=== PATIENT | female | born 1965 | race Caucasian/White ===

== ENCOUNTER 2019-03-27 02:35 | Inpatient (IN) | payer MEDICARE, OTHER ==
[2019-03-27] MEDS ORDERED: Sodium Chloride 0.9% 20 ML ONE (07:13)
[2019-03-27] MEDS ORDERED: Propofol 200 MG/20 ML SDV ONE (07:13)
[2019-03-27] MEDS ORDERED: Phenylephrine/Normal Saline 100 MCG/ML 10 ML Syringe ONE (07:13)
[2019-03-27] MEDS ORDERED: ePHEDrine 50 MG/ML SDV ONE (07:13)
[2019-03-27] MEDS ORDERED: Midazolam 1 MG/ML 2 ML SDV ONE (07:14)
[2019-03-27] MEDS ORDERED: fentaNYL 100 MCG/2 ML SDV ONE (07:14)
[2019-03-27] MEDS ORDERED: Bupivacaine 0.75%/D5W 2 ML Amp ONE (07:22)
[2019-03-27] MEDS ORDERED: Albuterol 0.083% 2.5 MG/3 ML Neb Soln NEB PRN (07:34)
[2019-03-27] MEDS ORDERED: 50% Dextrose in Water 50 ML Syringe IVPUSH PRN (07:34)
[2019-03-27] MEDS ORDERED: Naloxone 0.4 MG/ML Syringe IVPUSH PRN (07:34)
[2019-03-27] MEDS ORDERED: EPINEPHrine 1:10,000 1 MG/10 ML Syringe IVPUSH PRN (07:34)
[2019-03-27] MEDS ORDERED: Atropine 0.1 MG/ML 10 ML Syringe IVPUSH PRN ×2 (07:34)
[2019-03-27] MEDS ORDERED: ceFAZolin/Dextrose,Iso-Osmotic 2 GM/50 ML Duplex Bag IV ONE (07:41)
[2019-03-27] MEDS: Lactated Ringers 1,000 ML IV SCH ×2 (09:06→23:52)
--- NOTE | 2019-03-27 09:18 | PCM.PREANE ---
Preanesthetic Assessment - Anesthesia/Transfusion/Family Hx Anesthesia History: Prior Anesthesia Without Reaction Family History of Anesthesia Reaction: No Transfusion History: No Prior Transfusion(s) Intubation History: Unknown - Review of Systems General: No Symptoms Pulmonary: No Symptoms Cardiovascular: No Symptoms Gastrointestinal: No Symptoms Neurological: No Symptoms Other: Reports: None - Physical Assessment NPO Status Date: 03/26/18 NPO Status Time: 20:30 Vital Signs: Last Vital Signs Temp 36.3 C 03/27/19 08:32 Pulse 99 03/27/19 08:32 Resp 16 03/27/19 08:32 BP 124/81 03/27/19 08:32 Pulse Ox 97 03/27/19 08:32 Height: 5 ft 6 in Weight: 113.852 kg ASA Class: 2 Mental Status: Alert & Oriented x3 Airway Class: Mallampati = 2 Dentition: Reports: Normal Dentition (bonded front upper tooth ) Thyro-Mental Finger Breadths: 3 Mouth Opening Finger Breadths: 3 ROM/Head Extension: Full Lungs: Clear to Auscultation, Normal Respiratory Effort Cardiovascular: Regular Rate, Regular Rhythm - Allergies Allergies/Adverse Reactions: Allergies Allergy/AdvReac Type Severity Reaction Status Date / Time gabapentin Allergy Other Verified 03/22/19 12:24 morphine Allergy Headache Verified 03/22/19 12:24 - Blood Blood Available: No - Anesthesia Plan Pre-Op Medication Ordered: None - Acknowledgements Anesthesia Type Planned: Spinal (general anesthesia back-up) Pt an Appropriate Candidate for the Planned Anesthesia: Yes Alternatives and Risks of Anesthesia Discussed w Pt/Guardian: Yes Pt/Guardian Understands and Agrees with Anesthesia Plan: Yes PreAnesthesia Questionnaire HEENT History: Reports: Glaucoma Cardiovascular History: Reports: None, Other (See Below) (h/o hyperlipidemia) Respiratory History: Reports: Sleep Apnea Other Respiratory History: uses CPAP nightly Gastrointestinal History: Reports: GERD Other Gastrointestinal History: no medication for GERD 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 History: Reports: Renal 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: Musculoskeletal History: Reports: Arthritis (psoriatic), Back Pain, Chronic, Fibromyalgia, Neck Pain, Chronic Other Musculoskeletal History: cervical spinal stenosis, lumbar degenerative disc disease Neurological History: Reports: None, Migraines, Vertigo Other Neuro History: Migraines from Cervical Stenosis, has lumbar degenerative disc disease, hx of restless leg syndrome, some Doctors thought she had MS but it has not been confirmed, hx of motion sickness and vertigo Psychiatric History: Reports: Anxiety, Depression, PTSD Endocrine/Metabolic History: Reports: None (40.5), Obesity/BMI 30+ Other Endocrine/Metabolic History: took Metformin in the past for Type 2 diabetes- has been off of Metformin for over 1 year with low A1C Hematologic History: Reports: None Immunologic History: Reports: None Oncologic (Cancer) History: Reports: None - Past Surgical History Head Surgeries/Procedures: Reports: None Female Surgical History: Reports: Section, Hysterectomy, Lithotripsy /ESWL, Other (See Below) Other Female Surgeries/Procedures: pelvic Laparoscopy Musculoskeletal Surgical History: Reports: Ganglion Cyst, Shoulder Surgery Other Musculoskeletal Surgeries/Procedures:: left wrist, left shoulder clean out (crystals) Dermatological Surgical History: Reports: Other (See Below) - SUBSTANCE USE Smoking Status *Q: Former Smoker Tobacco Use Within Last Twelve Months: No Recreational Drug Use History: Yes Recreational Drug Type: Reports: Marijuana/Hashish - HOME MEDS Home Medications: Home Meds DULoxetine HCl [Cymbalta] 120 mg PO BEDTIME 07/10/15 [History] Folic Acid 2 mg PO BEDTIME 03/22/19 [History] Ketamine Hcl [Ketamine Nasal [place] Compound] 2 spray NASBOTH TID 03/22/19 [ History] Methotrexate [Xatmep] 0.8 ml SQ WEEKLY 03/22/19 [History] Naltrexone 6 mg PO BEDTIME 03/22/19 [History] Nortriptyline HCl [Pamelor] 50 mg PO TID 03/22/19 [History] Ondansetron [Zofran ODT] 4 mg PO ASDIRECTED PRN 03/22/19 [History] Vitamin B Complex 1 cap PO BEDTIME 03/22/19 [History] Vortioxetine Hydrobromide [Trintellix] 10 mg PO BEDTIME 03/22/19 [History] hydrOXYzine HCL [hydrOXYzine] 75 mg PO BEDTIME 03/22/19 [History] tiZANidine [Zanaflex] 8 mg PO Q8H PRN 03/22/19 [History] - CURRENT (IN HOUSE) MEDS Current Meds: Current Medications Albuterol (Proventil Neb Soln) 2.5 mg NEB ONETIME PRN PRN Reason: Wheezing Atropine Sulfate (Atropine 0.1 Mg/Ml) 0.5 mg IVPUSH ASDIRECTED PRN PRN Reason: Hypo-perfusion Stop: 03/27/19 19:34 Atropine Sulfate (Atropine 0.1 Mg/Ml) 1 mg IVPUSH ASDIRECTED PRN PRN Reason: Hypo-Perfusion Dextrose/Water (Dextrose 50% In Water) 50 ml IVPUSH ASDIRECTED PRN PRN Reason: Hypoglycemia Epinephrine HCl (Epinephrine 1:10,000) 1 mg IVPUSH ASDIRECTED PRN PRN Reason: ACLS Guidelines Fentanyl (Sublimaze) 50 mcg IVPUSH Q5M PRN PRN Reason: Pain Lactated Ringer's (Ringers, Lactated) 1,000 mls @ 100 mls/hr IV ASDIRECTED HILARIA Last Admin: 03/27/19 09:06 Dose: 100 mls/hr Cefazolin Sodium/Dextrose 2 gm (/ Premix) 50 mls @ 100 mls/hr IV ONETIME HILARIA Naloxone HCl (Narcan) 0.1 mg IVPUSH ASDIRECTED PRN PRN Reason: Respiratory Depression Tranexamic Acid (Cyklokapron) 2,000 mg IV ONETIME ONE Stop: 03/27/19 09:31 Discontinued Medications Bupivacaine HCl/Dextrose (Marcaine 0.75% Spinal) Confirm Administered Dose 2 ml .ROUTE .STK-MED ONE Stop: 03/27/19 07:23 Cefazolin Sodium/Dextrose (Ancef) Confirm Administered Dose 2 gm IV .STK-MED ONE Stop: 03/27/19 07:42 Ephedrine Sulfate (Ephedrine Sulfate) Confirm Administered Dose 50 mg .ROUTE .STK-MED ONE Stop: 03/27/19 07:14 Fentanyl (Sublimaze) Confirm Administered Dose 100 mcg .ROUTE .STK-MED ONE Stop: 03/27/19 07:15 Sodium Chloride (Normal Saline) Confirm Administered Dose 20 mls @ as directed .ROUTE .STK-MED ONE Stop: 03/27/19 07:14 Lidocaine HCl (Xylocaine-Mpf 1%) Confirm Administered Dose 5 ml .ROUTE .STK-MED ONE Stop: 03/27/19 07:20 Midazolam HCl (Versed 1 Mg/Ml) Confirm Administered Dose 2 mg .ROUTE .STK-MED ONE Stop: 03/27/19 07:15 Phenylephrine HCl (Phenylephrine In Ns 100 Mcg/Ml) Confirm Administered Dose 1 mg .ROUTE .STK-MED ONE Stop: 03/27/19 07:14 Propofol (Diprivan 20 Ml) Confirm Administered Dose 200 mg .ROUTE .STK-MED ONE Stop: 03/27/19 07:14
[2019-03-27] MEDS ORDERED: ceFAZolin 2 GM in Premix Bag 1 BAG IV SCH (09:30)
[2019-03-27] MEDS ORDERED: Dermabond Prineo 1 Tube TOP ONE (09:50)
[2019-03-27] MEDS ORDERED: Famotidine 20 MG/2 ML SDV IVPUSH ONE (10:05)
[2019-03-27] MEDS ORDERED: Famotidine 20 MG/2 ML SDV ONE (10:08)
[2019-03-27] MEDS ORDERED: Rocuronium 100 MG/10 ML Syringe ONE (10:55)
[2019-03-27] MEDS ORDERED: Ondansetron 4 MG/2 ML SDV ONE (10:55)
[2019-03-27] MEDS ORDERED: Lidocaine 2% 5 ML SDV ONE (10:55)
[2019-03-27] MEDS ORDERED: fentaNYL 250 MCG/5 ML SDV ONE (10:57)
[2019-03-27] MEDS ORDERED: Scopolamine 1.5 MG Transdermal Patch ONE (11:04)
[2019-03-27] MEDS ORDERED: Acetaminophen 650 MG in Premix Bag 1 BAG IV ONE (12:04)
--- NOTE | 2019-03-27 12:12 | PCM.OPNOTE ---
- General Post-Op/Procedure Note Date of Surgery/Procedure: 03/27/19 Operative Procedure(s): left anterior total hip arthroplasty Findings: labral ossification, OA Pre Op Diagnosis: left hip osteoarthritis Post-Op Diagnosis: same Anesthesia Technique: General ET Tube Primary Surgeon: Federico Friedman Mai Ditch Tender: Juana Drew Pathology: femoral head EBL in mLs: 500 Complications: none Condition: Good
[2019-03-27] MEDS ORDERED: Sodium Chloride 0.9% 10 ML Syringe FLUSH PRN (12:25)
[2019-03-27] MEDS ORDERED: Ondansetron 4 MG/2 ML SDV IVPUSH PRN (12:25)
[2019-03-27] MEDS ORDERED: diphenhydrAMINE 25 MG Cap PO PRN (12:25)
[2019-03-27] MEDS ORDERED: Sodium Chloride 0.9% 2.5 ML Syringe FLUSH PRN (12:25)
[2019-03-27] MEDS ORDERED: Acetaminophen/HYDROcodone 325-7.5 MG Tab PO PRN (12:25)
[2019-03-27] MEDS ORDERED: Aluminum Hydroxide/Magnesium Hydroxide/Simethicone Susp 30 ML Cup PO PRN (12:25)
[2019-03-27] MEDS ORDERED: Docusate Sodium 100 MG Cap PO PRN (12:25)
[2019-03-27] MEDS ORDERED: Bisacodyl 10 MG Supp RECTAL PRN (12:25)
[2019-03-27] MEDS: fentaNYL 100 MCG/2 ML SDV IVPUSH PRN ×3 (12:29→13:47)
[2019-03-27] MEDS: HYDROmorphone 2 MG/ML Syringe IVPUSH PRN ×2 (12:31→13:25)
[2019-03-27] MEDS ORDERED: Ondansetron 4 MG Tab.DIS PO PRN (12:33)
[2019-03-27] MEDS ORDERED: Acetaminophen 1,000 MG in Premix Bag 1 BAG IV ONE (12:59)
[2019-03-27] MEDS: Ketorolac 30 MG/ML SDV IVPUSH SCH ×3 (13:29→23:59)
[2019-03-27] MEDS ORDERED: LORazepam 2 MG/ML SDV IVPUSH ONE ×3 (13:49→14:45)
--- NOTE | 2019-03-27 14:06 | PCM.POSTAN ---
POST ANESTHESIA ASSESSMENT - MENTAL STATUS Mental Status: Alert, Oriented - VITAL SIGNS Vital Signs: Last Vital Signs Temp 35.9 C 03/27/19 12:25 Pulse 121 H 03/27/19 13:50 Resp 13 03/27/19 13:50 BP 108/69 03/27/19 13:50 Pulse Ox 93 L 03/27/19 13:50 - RESPIRATORY Respiratory Status: Respiratory Rate WNL, Airway Patent, O2 Saturation Stable - CARDIOVASCULAR CV Status: Pulse Rate WNL, Blood Pressure Stable - GASTROINTESTINAL GI Status: No Symptoms - PAIN Pain Score: 8 - POST OP HYDRATION Hydration Status: Adequate & Stable - OBSERVATIONS Free Text/Narrative:: no anesthesia problems
--- NOTE | 2019-03-27 16:49 | PCM.CONS ---
H&P History of Present Illness - General Date of Service: 03/27/19 Admit Problem/Dx: Admission Diagnosis/Problem Admission Diagnosis/Problem Hip replacement planned Source of Information: Patient History Limitations: Reports: No Limitations - History of Present Illness Initial Comments - Free Text/Narative: This 53 year female with pmh of anxiety depression chronic pain from MS and fibromyalgia with pain contract with Dr Kong presented today for L anterior JANI with Dr Santos. Hospitalist service consulted for medical management post- operatively. Patient returned from PACU this afternoon and ultimately transferred to ICU due to uncontrolled pain and concern with heavy use of narcotics in conjunction with her FAHEEM. Currently patient is alert, very drowsy from medications, rating pain 7/10 which is improved per patient family. Protecting her airway per self with sats of 93% on 2 L NC. Naltrexone was weaned by PCP, she last took this on Tuesday evening and took 3 mg. FAHEEM at home, uses at home CPAP. No hx of DM, CAD or HTN. - Related Data Allergies/Adverse Reactions: Allergies Allergy/AdvReac Type Severity Reaction Status Date / Time gabapentin Allergy Other Verified 03/27/19 16:04 morphine Allergy Headache Verified 03/27/19 16:04 Home Medications: Home Meds DULoxetine HCl [Cymbalta] 120 mg PO BEDTIME 07/10/15 [History] Folic Acid 2 mg PO BEDTIME 03/22/19 [History] Ketamine Hcl [Ketamine Nasal [place] Compound] 2 spray NASBOTH TID 03/22/19 [ History] Methotrexate [Xatmep] 0.8 ml SQ WEEKLY 03/22/19 [History] Naltrexone 6 mg PO BEDTIME 03/22/19 [History] Nortriptyline HCl [Pamelor] 50 mg PO TID 03/22/19 [History] Ondansetron [Zofran ODT] 4 mg PO ASDIRECTED PRN 03/22/19 [History] Vitamin B Complex 1 cap PO BEDTIME 03/22/19 [History] Vortioxetine Hydrobromide [Trintellix] 10 mg PO BEDTIME 03/22/19 [History] hydrOXYzine HCL [hydrOXYzine] 75 mg PO BEDTIME 03/22/19 [History] tiZANidine [Zanaflex] 8 mg PO Q8H PRN 03/22/19 [History] Past Medical History HEENT History: Reports: Glaucoma Cardiovascular History: Reports: None, Other (See Below) (h/o hyperlipidemia) Respiratory History: Reports: Sleep Apnea Other Respiratory History: uses CPAP nightly Gastrointestinal History: Reports: GERD Other Gastrointestinal History: no medication for GERD 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 History: Reports: 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: Musculoskeletal History: Reports: Arthritis (psoriatic), Back Pain, Chronic, Fibromyalgia, Neck Pain, Chronic Other Musculoskeletal History: cervical spinal stenosis, lumbar degenerative disc disease Neurological History: Reports: None, Migraines, Vertigo Other Neuro History: Migraines from Cervical Stenosis, has lumbar degenerative disc disease, hx of restless leg syndrome, some Doctors thought she had MS but it has not been confirmed, hx of motion sickness and vertigo Psychiatric History: Reports: Anxiety, Depression, PTSD Endocrine/Metabolic History: Reports: None (40.5), Obesity/BMI 30+ Other Endocrine/Metabolic History: took Metformin in the past for Type 2 diabetes- has been off of Metformin for over 1 year with low A1C Hematologic History: Reports: None Immunologic History: Reports: None Oncologic (Cancer) History: Reports: None - Past Surgical History Head Surgeries/Procedures: Reports: None Female Surgical History: Reports: Section, Hysterectomy, Lithotripsy /ESWL, Other (See Below) Other Female Surgeries/Procedures: pelvic Laparoscopy Musculoskeletal Surgical History: Reports: Ganglion Cyst, Shoulder Surgery Other Musculoskeletal Surgeries/Procedures:: left wrist, left shoulder clean out (crystals) Dermatological Surgical History: Reports: Other (See Below) Social & Family History - Tobacco Use Smoking Status *Q: Former Smoker Years of Tobacco use: 37 Tobacco Use Comment: quit 2 years ago - Recreational Drug Use Recreational Drug Use: Yes Drug Use in Last 12 Months: Yes Recreational Drug Type: Reports: Marijuana/Hashish Other Recreational Drug Type: medical marijuana for pain Recreational Drug Use Frequency: Daily H&P Review of Systems - Review of Systems: Review Of Systems: See Below General: Reports: Other HEENT: Reports: No Symptoms Pulmonary: Reports: No Symptoms. Denies: Shortness of Breath Cardiovascular: Reports: No Symptoms. Denies: Chest Pain Gastrointestinal: Reports: No Symptoms. Denies: Abdominal Pain Musculoskeletal: Reports: Joint Pain (L hip pain) Skin: Reports: No Symptoms Psychiatric: Reports: No Symptoms Neurological: Reports: No Symptoms Hematologic/Lymphatic: Reports: No Symptoms Immunologic: Reports: No Symptoms Exam - Exam Exam: See Below - Vital Signs Vital Signs: Last Vital Signs Temp 96.2 F 03/27/19 16:00 Pulse 117 H 03/27/19 16:00 Resp 18 03/27/19 16:00 BP 114/70 03/27/19 16:00 Pulse Ox 92 L 03/27/19 16:00 Weight: 113.852 kg - Exam Quality Assessment: Supplemental Oxygen General: Alert, Sedated (very drowsy due to medications.) Lungs: Clear to Auscultation, Normal Respiratory Effort Cardiovascular: Regular Rate, Regular Rhythm Back Exam: Normal Inspection, Full Range of Motion Extremities: Normal Inspection, Normal Range of Motion, Non-Tender, No Pedal Edema Neuro Extensive - Mental Status: Alert Neuro Extensive - Motor, Sensory, Reflexes: CN II-XII Intact Psychiatric: Alert, Normal Affect, Normal Mood - Patient Data Lab Results Last 24 hrs: Laboratory Results - last 24 hr 03/27/19 Range/Units 09:00 Blood Type O NEGATIVE Antibody Screen NEGATIVE Sepsis Event Note - Focused Exam Vital Signs: Vital Signs Temp Pulse Resp BP Pulse Ox 03/27/19 16:00 96.2 F 117 H 18 114/70 92 L 03/27/19 13:50 121 H 13 108/69 93 L 03/27/19 13:45 120 H 14 113/75 93 L 03/27/19 13:40 120 H 12 112/80 93 L 03/27/19 13:35 116 H 18 117/70 94 L 03/27/19 13:30 116 H 12 129/82 95 03/27/19 13:25 120 H 14 124/82 94 L 03/27/19 13:20 121 H 13 142/80 H 93 L 03/27/19 13:15 122 H 14 133/85 93 L 03/27/19 13:10 123 H 15 117/77 93 L 03/27/19 13:05 119 H 15 117/67 94 L 03/27/19 13:00 120 H 14 137/97 H 97 03/27/19 12:55 122 H 15 151/103 H 97 03/27/19 12:50 118 H 16 113/83 97 03/27/19 12:45 115 H 15 122/93 H 97 03/27/19 12:41 114 H 32 H 142/94 H 96 03/27/19 12:35 113 H 25 H 163/104 H 97 03/27/19 12:30 111 H 17 147/87 H 97 03/27/19 12:25 96.6 F 110 H 14 122/96 H 87 L 03/27/19 08:32 97.3 F 99 16 124/81 97 Date Exam was Performed: 03/27/19 Time Exam was Performed: 16:49 Consult PN Assessment/Plan POD#: 0 Procedures: Procedures ASSAY THYROID STIM HORMONE (10/23/18) C-REACTIVE PROTEIN (05/16/17) CHEST X-RAY 2VW FRONTAL&LATL (01/14/15) COLONOSCOPY AND BIOPSY (07/15/15) COMPLETE CBC AUTOMATED (01/21/17) COMPLETE CBC W/AUTO DIFF WBC (10/23/18) COMPREHEN METABOLIC PANEL (10/23/18) ECHO EXAM OF ABDOMEN (07/07/15) EGD BIOPSY SINGLE/MULTIPLE (07/15/15) FIBRIN DEGRADATION QUANT (09/13/16) GLYCOSYLATED HEMOGLOBIN TEST (03/29/16) HELICOBACTER PYLORI ANTIBODY (06/12/15) HEPATOBIL SYST IMAGE W/DRUG (07/18/15) INFLUENZA ASSAY W/OPTIC (01/14/15) LIPID PANEL (03/29/16) METABOLIC PANEL TOTAL CA (09/13/16) MRI BRAIN STEM W/O & W/DYE (02/23/18) MRI CHEST SPINE W/O & W/DYE (02/23/18) MRI JNT OF LWR EXTRE W/O DYE (01/03/19) MRI JOINT UPR EXTREM W/O DYE (04/13/17) MRI LUMBAR SPINE W/O DYE (04/05/14) MRI NECK SPINE W/O & W/DYE (02/23/18) PT EVAL HIGH COMPLEX 45 MIN (08/02/17) PT EVALUATION (04/03/15) RBC SED RATE AUTOMATED (01/21/17) REMOVE WRIST TENDON LESION (02/19/15) ROUTINE VENIPUNCTURE (10/23/18) THERAPEUTIC EXERCISES (04/03/15) UR ALBUMIN SEMIQUANTITATIVE (03/29/16) VIT D 1 25-DIHYDROXY (06/12/15) VITAMIN B-12 (10/23/18) X-RAY EXAM HIP UNI 2-3 VIEWS (09/22/18) X-RAY EXAM KNEE 4 OR MORE (09/22/18) X-RAY EXAM L-S SPINE 2/3 VWS (03/11/15) X-RAY EXAM OF SHOULDER (11/22/14) Problem List Initiated/Reviewed/Updated: Yes Plan: This 53 year female with pmh of anxiety depression chronic pain from MS and fibromyalgia with pain contract with Dr Kong presented today for L anterior JANI with Dr Santos. Hospitalist service consulted for medical management post- operatively. 1. S/P JANI: Per Orthopedics. Pain tolerance is likely low due to home medications and chronic pain already along with chronic use of naltrexone. Pain management per Orthopedics. 2. FAHEEM with CPAP: Recommend using CPAP when patient is sleeping, may need to add oxygen due to amount of narcotics being used. Monitor airway closely. 3. MS/Fibromyaglia: Continue all home meds, holding Methotrexate and Naltrexone. VTE prophylaxis: Recommend when deemed appropriate by Orthopedics.
[2019-03-27 17:55] LABS: BLOOD UREA NITROGEN,BUN 13 mg/dL (7.0-18.0); CARBON DIOXIDE,CO2 29.2 mmol/L (21.0-32.0); CHLORIDE,CL 104 mmol/L (98-107); GLUCOSE RANDOM 142 mg/dL (74-106); POTASSIUM,K 4.8 mmol/L (3.5-5.1); SODIUM,NA 139 mmol/L (136-145)
--- NOTE | 2019-03-27 18:30 | OR ---
SURGEON: Federico Santos MD DATE OF PROCEDURE: 03/27/2019 POWER PROJECT MANAGER: TAE Jacobs. REASON POWER PROJECT MANAGER WAS NECESSARY: Director Clinical Research was required for patient transport, positioning, retraction, dislocating, relocating the hip and closure. PREOPERATIVE DIAGNOSIS: Left hip osteoarthritis. POSTOPERATIVE DIAGNOSIS: Left hip osteoarthritis. OPERATION PERFORMED: Left anterior total hip arthroplasty. ANESTHESIA: General. COMPLICATION: None. ESTIMATED BLOOD LOSS: 500 mL. SPECIMENS: Femoral head. IMPLANTS: Chris Continuum Trabecular Metal shell with cluster holes, 52 mm outer diameter, Vivacet-E neutral liner, 32 mm inner diameter, Avenir-Hodges stem standard uncemented size 3, BIOLOX delta ceramic femoral head 32 mm diameter zero neck length. INDICATIONS: The patient is a 53-year-old female with mild arthritis of the hip and labral ossification. She has failed conservative management, activity modification, therapy injections, has chronic pain on a daily basis hindering activities, wished to undergo the above procedure. She understands the risks, benefits, and complications of procedure, including, but not limited to, infection, neurovascular injury, continued pain, nonresolution of symptoms, DVT, PE, stroke, AR, , leg-length discrepancy, fracture, dislocation, and she wished to proceed. She was placed on aspirin postoperatively for DVT prophylaxis. DESCRIPTION OF PROCEDURE: The patient is seen in the preoperative area. Operative extremity was marked. The patient was transferred to the operating room, placed supine on the Maquet table. General anesthesia was induced. Endotracheal tube placed. She received preop antibiotics of Ancef. Her legs were placed in the leg bars on the Maquet table with a narrow perineal post. Left hip was prepped and draped in the usual sterile fashion using alcohol, followed by ChloraPrep. A formal time-out was taken, identifying the correct patient, procedure, and extremity. She received preop antibiotics with Ancef and 2 g of TXA. An 8-cm incision starting lateral to the ASIS and going obliquely down to the femur was made. Dissection was carried down through subcutaneous tissues. Hemostasis was obtained. The fascia overlying the TFL lateral to lateral femoral cutaneous nerve was opened. The interval between TFL and sartorius and deep between the abductors and rectus was opened. The anterior vessels were coagulated. The vastus lateralis fascia was opened. The indirect head of the rectus was released. A deep Aniket retractor was placed. The capsule was held and tagged with two sutures and deep retractors were placed. Neck was cut from saddle region to 1 cm above the lesser trochanter, the head was removed. There was mild arthritis noted to be complete labral ossification. Any small amount of labral remnants were removed, as well as the pulvinar. The inferior capsule was released preserving the iliopsoas tendon. Head measured approximately 47 mm, sequential reaming from 46 to 52 mm going to slightly superomedial was made to get a good fit and fill. This had good bleeding cancellous bone with peripheral rim. After planing the bed to make sure it was level, Continuum Trabecular Metal shell with cluster holes was placed 10 degrees of anteversion and 40 degrees of abduction. This had excellent press fit. There was no uncovering anteriorly. The neutral liner was impacted. No screw was necessary. Femoral lift was placed and the leg was externally rotated, abducted, and extended. The superior capsule, obturator internus, and piriformis were released and sequential broaching of all squaxin version from the size 1 to size 3 was made. This had excellent fit and fill. It was trial reduced based on preoperative template, it was standard neck. Printed overlay technique after reduction showed offset to be slightly increased in leg length to be approximately equal. Therefore, the hip was dislocated. After removing the trial components, final Avenir-Hodges size 3 uncemented stem was impacted following the squaxin version, it was trial reduced to 0 neck length. Printed overlay technique showed leg lengths to be basically equal approximately 1 to 2 mm off and also to be increased couple of millimeters. There was no Shuck. There was stable range of motion. Therefore, hip was dislocated and a final 32 mm head, 0 neck length was impacted. After cleaning Macias taper, the hip was relocated, two tag sutures were tied together. The fascia was closed with #1 Vicryl, fat layer with #1 Vicryl, subcutaneous tissues with 2-0 Stratafix, skin with running 4-0 Monocryl. Dermabond tape and Aquacel dressing were placed. The patient was extubated in the operating room, transferred to recovery room in stable condition. Sponge and needle counts were correct at the end of the case. There were no complications. SULTANA / ARIELLE /[id number]
[2019-03-27] MEDS: ceFAZolin 2 GM in Premix Bag 1 BAG IV SCH (18:31)
[2019-03-27] MEDS: Acetaminophen/HYDROcodone 325-10 MG Tab PO PRN (19:16)
[2019-03-27] MEDS: LORazepam 2 MG/ML SDV IVPUSH PRN (20:45)
[2019-03-27] MEDS ORDERED: Vortioxetine Hydrobromide [Trintellix] 10 MG PO SCH (21:00)
[2019-03-27] MEDS ORDERED: DULoxetine 60 MG Cap PO SCH (21:00)
[2019-03-27] MEDS ORDERED: hydrOXYzine HCl 25 MG Tab PO SCH (21:00)
[2019-03-27] MEDS ORDERED: Folic Acid 1 MG Tab PO SCH (21:00)
[2019-03-27] MEDS: traMADol 50 MG Tab PO PRN (22:00)
[2019-03-27] MEDS ORDERED: Nortriptyline 25 MG Cap PO SCH (22:00)
[2019-03-28] MEDS: LORazepam 2 MG/ML SDV IVPUSH PRN (02:28)
[2019-03-28] MEDS: ceFAZolin 2 GM in Premix Bag 1 BAG IV SCH (02:29)
[2019-03-28] MEDS: traMADol 50 MG Tab PO PRN (04:33)
[2019-03-28 06:26] LABS: BLOOD UREA NITROGEN,BUN 13 mg/dL (7.0-18.0); CARBON DIOXIDE,CO2 28.6 mmol/L (21.0-32.0); CHLORIDE,CL 103 mmol/L (98-107); GLUCOSE RANDOM 115 mg/dL (74-106); POTASSIUM,K 4.5 mmol/L (3.5-5.1); SODIUM,NA 138 mmol/L (136-145)
[2019-03-28] MEDS: Acetaminophen/HYDROcodone 325-10 MG Tab PO PRN ×3 (06:38→10:04)
[2019-03-28] MEDS ORDERED: Sodium Chloride 0.9% 10 ML Syringe FLUSH PRN (07:30)
[2019-03-28] MEDS ORDERED: Sodium Chloride 0.9% 2.5 ML Syringe FLUSH PRN (07:30)
--- NOTE | 2019-03-28 07:33 | PCM.SN ---
- Free Text/Narrative Note: Subjective: doing well, pain controlled. has ambulated. tolerating oral. no CP/ SOB. admittedto ICU due to ativan, narcotics and sleep apnea for monitoring Objective: afebrile, vital signs stable left hip - dressing clean/dry/intact, minimal swelling in thigh, no swelling distally, no drainage. 2+ DP bilaterally. normal sensation and motor distally Hgb 13.0 Assessment/plan: POD #1 left JANI - full weight bearing, PT, walker - avoid hyperextension with external rotation - leave dressing on, may shower - ecotrin/SCDs for DVT prophylaxis - to home today likely
--- NOTE | 2019-03-28 07:33 | PCM48HPAN ---
Post Anesthesia Note - EVALUATION WITHIN 48HRS OF ANESTHETIC Vital Signs in Normal Range: Yes Patient Participated in Evaluation: Yes Respiratory Function Stable: Yes Airway Patent: Yes Cardiovascular Function Stable: Yes Hydration Status Stable: Yes Pain Control Satisfactory: Yes Nausea and Vomiting Control Satisfactory: Yes Mental Status Recovered: Yes Vital Signs: Last Vital Signs Temp 36.2 C 03/28/19 04:00 Pulse 117 H 03/27/19 16:00 Resp 15 03/28/19 07:00 BP 106/62 03/28/19 07:00 Pulse Ox 95 03/28/19 07:00
[2019-03-28] MEDS ORDERED: Aspirin 325 MG Tab PO SCH (09:00)
[2019-03-28] MEDS ORDERED: Famotidine 20 MG Tab PO SCH (09:00)
[2019-03-28] MEDS ORDERED: Nortriptyline 25 MG Cap PO SCH (09:00)
[2019-03-28] MEDS ORDERED: Polyethylene Glycol 3350 Powder 17 GM Packet PO SCH (09:00)
--- NOTE | 2019-03-28 09:17 | PCM.CONSN ---
- General Info Date of Service: 03/28/19 Admission Dx/Problem (Free Text): Admission Diagnosis/Problem Admission Diagnosis/Problem Hip replacement planned Subjective Update: Feeling good this morning. No chest pain or SOB. Eager to get moving. Pain to hip is tolerable, recently received pain meds. No concerns. Functional Status: Reports: Pain Controlled, Tolerating Diet - Review of Systems General: Reports: No Symptoms HEENT: Reports: No Symptoms. Denies: Headaches, Sore Throat, Visual Changes Pulmonary: Reports: No Symptoms. Denies: Shortness of Breath Cardiovascular: Reports: No Symptoms. Denies: Chest Pain Gastrointestinal: Reports: No Symptoms. Denies: Abdominal Pain, Nausea, Vomiting 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: Reports: No Symptoms. Denies: Dysuria, Frequency Musculoskeletal: Reports: No Symptoms Skin: Reports: No Symptoms Neurological: Reports: No Symptoms Psychiatric: Reports: No Symptoms - Patient Data Vitals - Most Recent: Last Vital Signs Temp 97.0 F 03/28/19 08:00 Pulse 98 03/28/19 08:00 Resp 14 03/28/19 08:00 BP 105/62 03/28/19 08:00 Pulse Ox 97 03/28/19 08:00 Weight - Most Recent: 116.528 kg I&O - Last 24 Hours: Intake & Output 03/27/19 03/28/19 03/28/19 22:59 06:59 14:59 Intake Total 470 2085 460 Output Total 100 600 50 Balance 370 1485 410 Lab Results Last 24 Hours: Laboratory Results - last 24 hr 03/27/19 03/27/19 03/27/19 Range/Units 09:00 17:29 17:29 WBC 26.06 H (4.0-11.0) K/uL RBC 4.66 (4.30-5.90) M/uL Hgb 14.3 (12.0-16.0) g/dL Hct 43.8 (36.0-46.0) % MCV 94.0 (80.0-98.0) fL MCH 30.7 (27.0-32.0) pg MCHC 32.6 (31.0-37.0) g/dL RDW Std Deviation 48.7 (28.0-62.0) fl RDW Coeff of Leta 14 (11.0-15.0) % Plt Count 324 (150-400) K/uL MPV 9.50 (7.40-12.00) fL Neut % (Auto) 88.5 H (48.0-80.0) % Lymph % (Auto) 6.1 L (16.0-40.0) % Door % (Auto) 5.2 (0.0-15.0) % Eos % (Auto) 0.0 (0.0-7.0) % Baso % (Auto) 0.2 (0.0-1.5) % Neut # (Auto) 23.1 H (1.4-5.7) K/uL Lymph # (Auto) 1.6 (0.6-2.4) K/uL Door # (Auto) 1.4 H (0.0-0.8) K/uL Eos # (Auto) 0.0 (0.0-0.7) K/uL Baso # (Auto) 0.0 (0.0-0.1) K/uL Nucleated RBC % 0.0 /100WBC Nucleated RBCs # 0 K/uL Sodium 139 (136-145) mmol/L Potassium 4.8 (3.5-5.1) mmol/L Chloride 104 (98-107) mmol/L Carbon Dioxide 29.2 (21.0-32.0) mmol/L BUN 13 (7.0-18.0) mg/dL Creatinine 0.9 (0.6-1.0) mg/dL Est Cr Clr Drug Dosing 66.90 mL/min Estimated GFR (MDRD) > 60.0 ml/min Glucose 142 H (74-106) mg/dL Calcium 8.7 (8.5-10.1) mg/dL Magnesium 1.9 (1.8-2.4) mg/dL Blood Type O NEGATIVE Antibody Screen NEGATIVE 03/28/19 03/28/19 Range/Units 05:35 05:35 WBC (4.0-11.0) K/uL RBC (4.30-5.90) M/uL Hgb 13.0 (12.0-16.0) g/dL Hct 39.8 (36.0-46.0) % MCV (80.0-98.0) fL MCH (27.0-32.0) pg MCHC (31.0-37.0) g/dL RDW Std Deviation (28.0-62.0) fl RDW Coeff of Leta (11.0-15.0) % Plt Count (150-400) K/uL MPV (7.40-12.00) fL Neut % (Auto) (48.0-80.0) % Lymph % (Auto) (16.0-40.0) % Door % (Auto) (0.0-15.0) % Eos % (Auto) (0.0-7.0) % Baso % (Auto) (0.0-1.5) % Neut # (Auto) (1.4-5.7) K/uL Lymph # (Auto) (0.6-2.4) K/uL Door # (Auto) (0.0-0.8) K/uL Eos # (Auto) (0.0-0.7) K/uL Baso # (Auto) (0.0-0.1) K/uL Nucleated RBC % /100WBC Nucleated RBCs # K/uL Sodium 138 (136-145) mmol/L Potassium 4.5 (3.5-5.1) mmol/L Chloride 103 (98-107) mmol/L Carbon Dioxide 28.6 (21.0-32.0) mmol/L BUN 13 (7.0-18.0) mg/dL Creatinine 0.8 (0.6-1.0) mg/dL Est Cr Clr Drug Dosing 75.26 mL/min Estimated GFR (MDRD) > 60.0 ml/min Glucose 115 H (74-106) mg/dL Calcium 8.2 L (8.5-10.1) mg/dL Magnesium (1.8-2.4) mg/dL Blood Type Antibody Screen Med Orders - Current: Current Medications Hydrocodone Bitart/Acetaminophen ([place] 325-10 Mg) 1 - 2 tab PO Q4H PRN PRN Reason: Pain Last Admin: 03/28/19 06:38 Dose: 2 tab Hydrocodone Bitart/Acetaminophen ([place] 325-7.5 Mg) 1 - 2 tab PO Q6H PRN PRN Reason: Pain Al Hydroxide/Mg Hydroxide (Mag-Al Plus) 30 ml PO Q4H PRN PRN Reason: Indigestion Aspirin (Aspirin) 325 mg PO BID HILARIA Last Admin: 03/28/19 08:30 Dose: 325 mg Bisacodyl (Dulcolax) 10 mg RECTAL DAILY PRN PRN Reason: Constipation Diphenhydramine HCl (Benadryl) 25 - 50 mg PO Q6H PRN PRN Reason: Itching Docusate Sodium (Colace) 100 mg PO BID PRN PRN Reason: Constipation Duloxetine HCl (Cymbalta) 120 mg PO BEDTIME [facility] Last Admin: 03/27/19 20:13 Dose: 120 mg Famotidine (Pepcid) 40 mg PO DAILY [facility] Last Admin: 03/28/19 08:30 Dose: 40 mg Folic Acid (Folic Acid) 2 mg PO BEDTIME [facility] Last Admin: 03/27/19 20:14 Dose: 2 mg Hydroxyzine HCl (Atarax) 75 mg PO BEDTIME [facility] Last Admin: 03/27/19 20:14 Dose: 75 mg Lactated Ringer's (Ringers, Lactated) 1,000 mls @ 100 mls/hr IV ASDIRECTED [facility] Last Admin: 03/27/19 23:52 Dose: 100 mls/hr Lorazepam (Ativan) 1 mg IVPUSH Q6H PRN PRN Reason: Anxiety Last Admin: 03/28/19 02:28 Dose: 1 mg [Ketamine Nasal Fortine Compound] Patients Own Med 2 spray NASBOTH TID [facility] Last Admin: 03/28/19 06:40 Dose: 2 spray Nortriptyline HCl (Nortriptyline) 50 mg PO DAILY [facility] Last Admin: 03/28/19 08:31 Dose: Not Given Ondansetron HCl (Zofran) 4 mg IVPUSH Q6H PRN PRN Reason: Nausea/Vomiting Ondansetron HCl (Zofran Odt) 4 mg PO ASDIRECTED PRN PRN Reason: Nausea Vortioxetine Hydrobromide [ Trintellix] 10 Mg 0 each PO BEDTIME [facility] Last Admin: 03/27/19 22:06 Dose: Not Given Polyethylene Glycol (Miralax) 17 gm PO DAILY [facility] Last Admin: 03/28/19 08:30 Dose: 17 gm Sodium Chloride (Saline Flush) 10 ml FLUSH ASDIRECTED PRN PRN Reason: Keep Vein Open Sodium Chloride (Saline Flush) 2.5 ml FLUSH ASDIRECTED PRN PRN Reason: Keep Vein Open Sodium Chloride (Saline Flush) 10 ml FLUSH ASDIRECTED PRN PRN Reason: Keep Vein Open Sodium Chloride (Saline Flush) 2.5 ml FLUSH ASDIRECTED PRN PRN Reason: Keep Vein Open Tramadol HCl (Ultram) 50 - 100 mg PO Q6H PRN PRN Reason: Pain Last Admin: 03/28/19 04:33 Dose: 100 mg Discontinued Medications Albuterol (Proventil Neb Soln) 2.5 mg NEB ONETIME PRN PRN Reason: Wheezing Atropine Sulfate (Atropine 0.1 Mg/Ml) 0.5 mg IVPUSH ASDIRECTED PRN PRN Reason: Hypo-perfusion Stop: 03/27/19 19:34 Atropine Sulfate (Atropine 0.1 Mg/Ml) 1 mg IVPUSH ASDIRECTED PRN PRN Reason: Hypo-Perfusion Bupivacaine HCl/Dextrose (Marcaine 0.75% Spinal) Confirm Administered Dose 2 ml .ROUTE .STK-MED ONE Stop: 03/27/19 07:23 Cefazolin Sodium/Dextrose (Ancef) Confirm Administered Dose 2 gm IV .STK-MED ONE Stop: 03/27/19 07:42 Dextrose/Water (Dextrose 50% In Water) 50 ml IVPUSH ASDIRECTED PRN PRN Reason: Hypoglycemia Ephedrine Sulfate (Ephedrine Sulfate) Confirm Administered Dose 50 mg .ROUTE .STK-MED ONE Stop: 03/27/19 07:14 Epinephrine HCl (Epinephrine 1:10,000) 1 mg IVPUSH ASDIRECTED PRN PRN Reason: ACLS Guidelines Famotidine (Pepcid) 20 mg IVPUSH ONETIME ONE Stop: 03/27/19 10:06 Last Admin: 03/27/19 10:08 Dose: 20 mg Famotidine (Pepcid) Confirm Administered Dose 20 mg .ROUTE .STK-MED ONE Stop: 03/27/19 10:09 Last Admin: 03/27/19 14:34 Dose: Not Given Fentanyl (Sublimaze) Confirm Administered Dose 100 mcg .ROUTE .STK-MED ONE Stop: 03/27/19 07:15 Fentanyl (Sublimaze) 50 mcg IVPUSH Q5M PRN PRN Reason: Pain Last Admin: 03/27/19 13:47 Dose: 50 mcg Fentanyl (Sublimaze) Confirm Administered Dose 250 mcg .ROUTE .STK-MED ONE Stop: 03/27/19 10:58 Hydromorphone HCl (Dilaudid) 1 - 2 mg IVPUSH ONETIME PRN PRN Reason: Pain Last Admin: 03/27/19 13:25 Dose: 1 mg Cefazolin Sodium/Dextrose 2 gm (/ Premix) 50 mls @ 100 mls/hr IV ONETIME [facility] Sodium Chloride (Normal Saline) Confirm Administered Dose 20 mls @ as directed .ROUTE .STK-MED ONE Stop: 03/27/19 07:14 Acetaminophen 650 mg/ Premix 65 mls @ 400 mls/hr IV NOW ONE Stop: 03/27/19 12:13 Last Admin: 03/27/19 14:34 Dose: Not Given Cefazolin Sodium/Dextrose 2 gm (/ Premix) 50 mls @ 100 mls/hr IV Q8H [facility] Stop: 03/28/19 03:29 Last Admin: 03/28/19 02:29 Dose: 100 mls/hr Acetaminophen (Ofirmev) Confirm Administered Dose 100 mls @ as directed .ROUTE .STK-MED ONE Stop: 03/27/19 12:50 Acetaminophen 1,000 mg/ Premix 100 mls @ 400 mls/hr IV NOW ONE Stop: 03/27/19 13:13 Last Admin: 03/27/19 13:13 Dose: 400 mls/hr Ketorolac Tromethamine (Toradol) 30 mg IVPUSH Q6H [facility] Stop: 03/28/19 05:00 Last Admin: 03/27/19 23:59 Dose: 30 mg Lidocaine (Xylocaine-Mpf 2%) Confirm Administered Dose 5 ml .ROUTE .STK-MED ONE Stop: 03/27/19 10:56 Lidocaine HCl (Xylocaine-Mpf 1%) Confirm Administered Dose 5 ml .ROUTE .STK-MED ONE Stop: 03/27/19 07:20 Lorazepam (Ativan) 1 mg IVPUSH ONETIME ONE Stop: 03/27/19 13:50 Last Admin: 03/27/19 14:34 Dose: Not Given Lorazepam (Ativan) 1 mg IVPUSH ONETIME ONE Stop: 03/27/19 14:46 Last Admin: 03/27/19 14:51 Dose: 1 mg Midazolam HCl (Versed 1 Mg/Ml) Confirm Administered Dose 2 mg .ROUTE .STK-MED ONE Stop: 03/27/19 07:15 Naloxone HCl (Narcan) 0.1 mg IVPUSH ASDIRECTED PRN PRN Reason: Respiratory Depression Nortriptyline HCl (Nortriptyline) 50 mg PO TID HILARIA Octyl Cyanoacrylate (Dermabond Prineo) 1 applic TOP .STK-MED ONE Stop: 03/27/19 09:51 Ondansetron HCl (Zofran) Confirm Administered Dose 4 mg .ROUTE .STK-MED ONE Stop: 03/27/19 10:56 Phenylephrine HCl (Phenylephrine In Ns 100 Mcg/Ml) Confirm Administered Dose 1 mg .ROUTE .STK-MED ONE Stop: 03/27/19 07:14 Propofol (Diprivan 20 Ml) Confirm Administered Dose 200 mg .ROUTE .STK-MED ONE Stop: 03/27/19 07:14 Rocuronium [place] (Zemuron) Confirm Administered Dose 100 mg .ROUTE .STK-MED ONE Stop: 03/27/19 10:56 Scopolamine (Transderm-Scop) Confirm Administered Dose 1.5 mg .ROUTE .STK-MED ONE Stop: 03/27/19 11:05 Succinylcholine Chloride (Succinylcholine Chloride) Confirm Administered Dose 200 mg .ROUTE .STK-MED ONE Stop: 03/27/19 10:56 Tranexamic Acid (Cyklokapron) 2,000 mg IV ONETIME ONE Stop: 03/27/19 09:31 Last Admin: 03/27/19 14:33 Dose: Not Given Tranexamic Acid (Cyklokapron) Confirm Administered Dose 2,000 mg .ROUTE .STK- MED ONE Stop: 03/27/19 10:44 - Exam General: Alert, Oriented, Cooperative, Other (drowsy from narcotics) Lungs: Clear to Auscultation, Normal Respiratory Effort Cardiovascular: Regular Rate, Regular Rhythm GI/Abdominal Exam: Normal Bowel Sounds, Soft, Non-Tender Extremities: Normal Inspection, Normal Range of Motion, Non-Tender, No Pedal Edema Neurological: No New Focal Deficit Psy/Mental Status: Alert, Normal Affect, Normal Mood Sepsis Event Note - Evaluation Sepsis Screening Result: No Definite Risk - Focused Exam Vital Signs: Vital Signs Temp Pulse Resp BP Pulse Ox 03/28/19 08:00 97.0 F 98 14 105/62 97 01/22/20 07:00 15 106/62 95 03/28/19 06:00 11 L 111/63 96 03/28/19 05:00 14 100/56 L 96 03/28/19 04:30 17 103/52 L 96 03/28/19 04:00 97.2 F 16 91/59 L 96 03/28/19 03:00 16 94/52 L 97 03/28/19 02:00 17 101/61 91 L 03/28/19 01:00 14 113/65 93 L 03/28/19 00:00 97.5 F 15 101/67 91 L 03/27/19 23:00 15 91 L 03/27/19 22:00 13 104/64 97 Date Exam was Performed: 03/28/19 Time Exam was Performed: 09:12 Consult PN Assessment/Plan POD#: 1 Procedures: Procedures ASSAY THYROID STIM HORMONE (10/23/18) C-REACTIVE PROTEIN (05/16/17) CHEST X-RAY 2VW FRONTAL&LATL (01/14/15) COLONOSCOPY AND BIOPSY (07/15/15) COMPLETE CBC AUTOMATED (01/21/17) COMPLETE CBC W/AUTO DIFF WBC (10/23/18) COMPREHEN METABOLIC PANEL (10/23/18) ECHO EXAM OF ABDOMEN (07/07/15) EGD BIOPSY SINGLE/MULTIPLE (07/15/15) FIBRIN DEGRADATION QUANT (09/13/16) GLYCOSYLATED HEMOGLOBIN TEST (03/29/16) HELICOBACTER PYLORI ANTIBODY (06/12/15) HEPATOBIL SYST IMAGE W/DRUG (07/18/15) INFLUENZA ASSAY W/OPTIC (01/14/15) LIPID PANEL (03/29/16) METABOLIC PANEL TOTAL CA (09/13/16) MRI BRAIN STEM W/O & W/DYE (02/23/18) MRI CHEST SPINE W/O & W/DYE (02/23/18) MRI JNT OF LWR EXTRE W/O DYE (01/03/19) MRI JOINT UPR EXTREM W/O DYE (04/13/17) MRI LUMBAR SPINE W/O DYE (04/05/14) MRI NECK SPINE W/O & W/DYE (02/23/18) PT EVAL HIGH COMPLEX 45 MIN (08/02/17) PT EVALUATION (04/03/15) RBC SED RATE AUTOMATED (01/21/17) REMOVE WRIST TENDON LESION (02/19/15) ROUTINE VENIPUNCTURE (10/23/18) THERAPEUTIC EXERCISES (04/03/15) UR ALBUMIN SEMIQUANTITATIVE (03/29/16) VIT D 1 25-DIHYDROXY (06/12/15) VITAMIN B-12 (10/23/18) X-RAY EXAM HIP UNI 2-3 VIEWS (09/22/18) X-RAY EXAM KNEE 4 OR MORE (09/22/18) X-RAY EXAM L-S SPINE 2/3 VWS (03/11/15) X-RAY EXAM OF SHOULDER (11/22/14) Problem List Initiated/Reviewed/Updated: Yes Plan: This 53 year female with pmh of anxiety depression chronic pain from MS and fibromyalgia with pain contract with Dr Kong presented today for L anterior JANI with Dr Santos. Hospitalist service consulted for medical management post- operatively. 1. S/P JANI: Per Orthopedics. Pain management per Orthopedics. Hold naltrexone per primary's direction, patient aware. Leukocytosis noted last night post-op, likely secondary to surgical intervention. No fevers or chills. No urinary concerns. 2. FAHEEM with CPAP: Respiratory status good. Continue using CPAP when patient is sleeping. Monitor airway closely. 3. MS/Fibromyaglia: Continue all home meds, holding Methotrexate and Naltrexone until off narcotics. VTE prophylaxis: Recommend when deemed appropriate by Orthopedics.
--- NOTE | 2019-03-28 12:30 | PCM.DCSUM1 ---
Discharge Summary - Hospital Course Brief History: Admitted for elective left hip replacement Diagnosis: Stroke: No - Discharge Data Discharge Date: 03/28/19 Discharge Disposition: Home, Self-Care 01 Condition: Good - Referral to Home Health Primary Care Physician: Cameron Chávez MD - Patient Summary/Data Operative Procedure(s) Performed: left anterior total hip arthroplasty Consults: Consultations 03/27/19 12:28 PT Evaluation and Treatment [CONS] Routine 03/27/19 15:00 PT Evaluation and Treatment [CONS] Routine 03/27/19 16:25 Consult to Physician [CONS] Routine Hospital Course: was admitted and underwent uneventful hip replacement. He was admitted to the ICU due to sedation and sleep apnea. She did well postoperatively participate in therapy. She was then discharged home post operative day #1. - Patient Instructions Diet: Usual Diet as Tolerated Activity: Apply Ice, Full Weight Bearing Driving: Do Not Drive Showering/Bathing: May Shower Wound/Incision Care: Keep Operative Site/Wound Site Clean and Dry, Do NOT Change Dressing Notify Provider of: Fever, Swelling and Redness, Drainage - Discharge Plan *PRESCRIPTION DRUG MONITORING PROGRAM REVIEWED*: No *COPY OF PRESCRIPTION DRUG MONITORING REPORT IN PATIENT EVIE: No Home Medications: Home Meds DULoxetine HCl [Cymbalta] 120 mg PO BEDTIME 07/10/15 [History] Folic Acid 2 mg PO BEDTIME 03/22/19 [History] Ketamine Hcl [Ketamine Nasal Alleene Compound] 2 spray NASBOTH TID 03/22/19 [ History] Methotrexate [Xatmep] 0.8 ml SQ WEEKLY 03/22/19 [History] Naltrexone 6 mg PO BEDTIME 03/22/19 [History] Nortriptyline HCl [Pamelor] 50 mg PO DAILY 03/22/19 [History] Ondansetron [Zofran ODT] 4 mg PO ASDIRECTED PRN 03/22/19 [History] Vitamin B Complex 1 cap PO BEDTIME 03/22/19 [History] Vortioxetine Hydrobromide [Trintellix] 10 mg PO BEDTIME 03/22/19 [History] hydrOXYzine HCL [hydrOXYzine] 75 mg PO BEDTIME 03/22/19 [History] tiZANidine [Zanaflex] 8 mg PO Q8H PRN 03/22/19 [History] Patient Handouts: Acetaminophen; Hydrocodone tablets or capsules, Total Hip Replacement, Care After, [id number], Aspirin capsules or tablets extended release Referrals: Juana Drew DIRECTOR SURFACE TRANSPORTATION [Nurse Practitioner] - 04/10/19 11:00 am - Discharge Summary/Plan Comment DC Time >30 min.: No - Patient Data Vitals - Most Recent: Last Vital Signs Temp 36.1 C 03/28/19 08:00 Pulse 100 03/28/19 09:00 Resp 18 03/28/19 09:00 BP 116/69 03/28/19 09:00 Pulse Ox 95 03/28/19 09:00 Weight - Most Recent: 116.528 kg I&O - Last 24 hours: Intake & Output 03/27/19 03/28/19 03/28/19 22:59 06:59 14:59 Intake Total 470 2085 460 Output Total 100 600 50 Balance 370 1485 410 Lab Results - Last 24 hrs: Laboratory Results - last 24 hr 03/27/19 03/27/19 03/28/19 Range/Units 17:29 17:29 05:35 WBC 26.06 H (4.0-11.0) K/uL RBC 4.66 (4.30-5.90) M/uL Hgb 14.3 13.0 (12.0-16.0) g/dL Hct 43.8 39.8 (36.0-46.0) % MCV 94.0 (80.0-98.0) fL MCH 30.7 (27.0-32.0) pg MCHC 32.6 (31.0-37.0) g/dL RDW Std Deviation 48.7 (28.0-62.0) fl RDW Coeff of Leta 14 (11.0-15.0) % Plt Count 324 (150-400) K/uL MPV 9.50 (7.40-12.00) fL Neut % (Auto) 88.5 H (48.0-80.0) % Lymph % (Auto) 6.1 L (16.0-40.0) % Glascock % (Auto) 5.2 (0.0-15.0) % Eos % (Auto) 0.0 (0.0-7.0) % Baso % (Auto) 0.2 (0.0-1.5) % Neut # (Auto) 23.1 H (1.4-5.7) K/uL Lymph # (Auto) 1.6 (0.6-2.4) K/uL Glascock # (Auto) 1.4 H (0.0-0.8) K/uL Eos # (Auto) 0.0 (0.0-0.7) K/uL Baso # (Auto) 0.0 (0.0-0.1) K/uL Nucleated RBC % 0.0 /100WBC Nucleated RBCs # 0 K/uL Sodium 139 (136-145) mmol/L Potassium 4.8 (3.5-5.1) mmol/L Chloride 104 (98-107) mmol/L Carbon Dioxide 29.2 (21.0-32.0) mmol/L BUN 13 (7.0-18.0) mg/dL Creatinine 0.9 (0.6-1.0) mg/dL Est Cr Clr Drug Dosing 66.90 mL/min Estimated GFR (MDRD) > 60.0 ml/min Glucose 142 H (74-106) mg/dL Calcium 8.7 (8.5-10.1) mg/dL Magnesium 1.9 (1.8-2.4) mg/dL 03/28/19 Range/Units 05:35 WBC (4.0-11.0) K/uL RBC (4.30-5.90) M/uL Hgb (12.0-16.0) g/dL Hct (36.0-46.0) % MCV (80.0-98.0) fL MCH (27.0-32.0) pg MCHC (31.0-37.0) g/dL RDW Std Deviation (28.0-62.0) fl RDW Coeff of Leta (11.0-15.0) % Plt Count (150-400) K/uL MPV (7.40-12.00) fL Neut % (Auto) (48.0-80.0) % Lymph % (Auto) (16.0-40.0) % Glascock % (Auto) (0.0-15.0) % Eos % (Auto) (0.0-7.0) % Baso % (Auto) (0.0-1.5) % Neut # (Auto) (1.4-5.7) K/uL Lymph # (Auto) (0.6-2.4) K/uL Glascock # (Auto) (0.0-0.8) K/uL Eos # (Auto) (0.0-0.7) K/uL Baso # (Auto) (0.0-0.1) K/uL Nucleated RBC % /100WBC Nucleated RBCs # K/uL Sodium 138 (136-145) mmol/L Potassium 4.5 (3.5-5.1) mmol/L Chloride 103 (98-107) mmol/L Carbon Dioxide 28.6 (21.0-32.0) mmol/L BUN 13 (7.0-18.0) mg/dL Creatinine 0.8 (0.6-1.0) mg/dL Est Cr Clr Drug Dosing 75.26 mL/min Estimated GFR (MDRD) > 60.0 ml/min Glucose 115 H (74-106) mg/dL Calcium 8.2 L (8.5-10.1) mg/dL Magnesium (1.8-2.4) mg/dL Med Orders - Current: Current Medications Hydrocodone Bitart/Acetaminophen ([place] 325-10 Mg) 1 - 2 tab PO Q4H PRN PRN Reason: Pain Last Admin: 03/28/19 10:04 Dose: 2 tab Hydrocodone Bitart/Acetaminophen ([place] 325-7.5 Mg) 1 - 2 tab PO Q6H PRN PRN Reason: Pain Al Hydroxide/Mg Hydroxide (Mag-Al Plus) 30 ml PO Q4H PRN PRN Reason: Indigestion Aspirin (Aspirin) 325 mg PO BID [facility] Last Admin: 03/28/19 08:30 Dose: 325 mg Bisacodyl (Dulcolax) 10 mg RECTAL DAILY PRN PRN Reason: Constipation Diphenhydramine HCl (Benadryl) 25 - 50 mg PO Q6H PRN PRN Reason: Itching Docusate Sodium (Colace) 100 mg PO BID PRN PRN Reason: Constipation Duloxetine HCl (Cymbalta) 120 mg PO BEDTIME [facility] Last Admin: 03/27/19 20:13 Dose: 120 mg Famotidine (Pepcid) 40 mg PO DAILY [facility] Last Admin: 03/28/19 08:30 Dose: 40 mg Folic Acid (Folic Acid) 2 mg PO BEDTIME [facility] Last Admin: 03/27/19 20:14 Dose: 2 mg Hydroxyzine HCl (Atarax) 75 mg PO BEDTIME [facility] Last Admin: 03/27/19 20:14 Dose: 75 mg Lactated Ringer's (Ringers, Lactated) 1,000 mls @ 100 mls/hr IV ASDIRECTED [facility] Last Admin: 03/27/19 23:52 Dose: 100 mls/hr Lorazepam (Ativan) 1 mg IVPUSH Q6H PRN PRN Reason: Anxiety Last Admin: 03/28/19 02:28 Dose: 1 mg [Ketamine Nasal Alleene Compound] Patients Own Med 2 spray NASBOTH TID [facility] Last Admin: 03/28/19 06:40 Dose: 2 spray Nortriptyline HCl (Nortriptyline) 50 mg PO DAILY [facility] Last Admin: 03/28/19 08:31 Dose: Not Given Ondansetron HCl (Zofran) 4 mg IVPUSH Q6H PRN PRN Reason: Nausea/Vomiting Ondansetron HCl (Zofran Odt) 4 mg PO ASDIRECTED PRN PRN Reason: Nausea Vortioxetine Hydrobromide [ Trintellix] 10 Mg 0 each PO BEDTIME [facility] Last Admin: 03/27/19 22:06 Dose: Not Given Polyethylene Glycol (Miralax) 17 gm PO DAILY [facility] Last Admin: 03/28/19 08:30 Dose: 17 gm Sodium Chloride (Saline Flush) 10 ml FLUSH ASDIRECTED PRN PRN Reason: Keep Vein Open Sodium Chloride (Saline Flush) 2.5 ml FLUSH ASDIRECTED PRN PRN Reason: Keep Vein Open Sodium Chloride (Saline Flush) 10 ml FLUSH ASDIRECTED PRN PRN Reason: Keep Vein Open Sodium Chloride (Saline Flush) 2.5 ml FLUSH ASDIRECTED PRN PRN Reason: Keep Vein Open Tramadol HCl (Ultram) 50 - 100 mg PO Q6H PRN PRN Reason: Pain Last Admin: 03/28/19 04:33 Dose: 100 mg Discontinued Medications Albuterol (Proventil Neb Soln) 2.5 mg NEB ONETIME PRN PRN Reason: Wheezing Atropine Sulfate (Atropine 0.1 Mg/Ml) 0.5 mg IVPUSH ASDIRECTED PRN PRN Reason: Hypo-perfusion Stop: 03/27/19 19:34 Atropine Sulfate (Atropine 0.1 Mg/Ml) 1 mg IVPUSH ASDIRECTED PRN PRN Reason: Hypo-Perfusion Bupivacaine HCl/Dextrose (Marcaine 0.75% Spinal) Confirm Administered Dose 2 ml .ROUTE .STK-MED ONE Stop: 03/27/19 07:23 Cefazolin Sodium/Dextrose (Ancef) Confirm Administered Dose 2 gm IV .STK-MED ONE Stop: 03/27/19 07:42 Dextrose/Water (Dextrose 50% In Water) 50 ml IVPUSH ASDIRECTED PRN PRN Reason: Hypoglycemia Ephedrine Sulfate (Ephedrine Sulfate) Confirm Administered Dose 50 mg .ROUTE .STK-MED ONE Stop: 03/27/19 07:14 Epinephrine HCl (Epinephrine 1:10,000) 1 mg IVPUSH ASDIRECTED PRN PRN Reason: ACLS Guidelines Famotidine (Pepcid) 20 mg IVPUSH ONETIME ONE Stop: 03/27/19 10:06 Last Admin: 03/27/19 10:08 Dose: 20 mg Famotidine (Pepcid) Confirm Administered Dose 20 mg .ROUTE .STK-MED ONE Stop: 03/27/19 10:09 Last Admin: 03/27/19 14:34 Dose: Not Given Fentanyl (Sublimaze) Confirm Administered Dose 100 mcg .ROUTE .STK-MED ONE Stop: 03/27/19 07:15 Fentanyl (Sublimaze) 50 mcg IVPUSH Q5M PRN PRN Reason: Pain Last Admin: 03/27/19 13:47 Dose: 50 mcg Fentanyl (Sublimaze) Confirm Administered Dose 250 mcg .ROUTE .STK-MED ONE Stop: 03/27/19 10:58 Hydromorphone HCl (Dilaudid) 1 - 2 mg IVPUSH ONETIME PRN PRN Reason: Pain Last Admin: 03/27/19 13:25 Dose: 1 mg Cefazolin Sodium/Dextrose 2 gm (/ Premix) 50 mls @ 100 mls/hr IV ONETIME HILARIA Sodium Chloride (Normal Saline) Confirm Administered Dose 20 mls @ as directed .ROUTE .STK-MED ONE Stop: 03/27/19 07:14 Acetaminophen 650 mg/ Premix 65 mls @ 400 mls/hr IV NOW ONE Stop: 03/27/19 12:13 Last Admin: 03/27/19 14:34 Dose: Not Given Cefazolin Sodium/Dextrose 2 gm (/ Premix) 50 mls @ 100 mls/hr IV Q8H [facility] Stop: 03/28/19 03:29 Last Admin: 03/28/19 02:29 Dose: 100 mls/hr Acetaminophen (Ofirmev) Confirm Administered Dose 100 mls @ as directed .ROUTE .STK-MED ONE Stop: 03/27/19 12:50 Acetaminophen 1,000 mg/ Premix 100 mls @ 400 mls/hr IV NOW ONE Stop: 03/27/19 13:13 Last Admin: 03/27/19 13:13 Dose: 400 mls/hr Ketorolac Tromethamine (Toradol) 30 mg IVPUSH Q6H [facility] Stop: 03/28/19 05:00 Last Admin: 03/27/19 23:59 Dose: 30 mg Lidocaine (Xylocaine-Mpf 2%) Confirm Administered Dose 5 ml .ROUTE .STK-MED ONE Stop: 03/27/19 10:56 Lidocaine HCl (Xylocaine-Mpf 1%) Confirm Administered Dose 5 ml .ROUTE .STK-MED ONE Stop: 03/27/19 07:20 Lorazepam (Ativan) 1 mg IVPUSH ONETIME ONE Stop: 03/27/19 13:50 Last Admin: 03/27/19 14:34 Dose: Not Given Lorazepam (Ativan) 1 mg IVPUSH ONETIME ONE Stop: 03/27/19 14:46 Last Admin: 03/27/19 14:51 Dose: 1 mg Midazolam HCl (Versed 1 Mg/Ml) Confirm Administered Dose 2 mg .ROUTE .STK-MED ONE Stop: 03/27/19 07:15 Naloxone HCl (Narcan) 0.1 mg IVPUSH ASDIRECTED PRN PRN Reason: Respiratory Depression Nortriptyline HCl (Nortriptyline) 50 mg PO TID [facility] Octyl Cyanoacrylate (Dermabond Prineo) 1 applic TOP .STK-MED ONE Stop: 03/27/19 09:51 Ondansetron HCl (Zofran) Confirm Administered Dose 4 mg .ROUTE .STK-MED ONE Stop: 03/27/19 10:56 Phenylephrine HCl (Phenylephrine In Ns 100 Mcg/Ml) Confirm Administered Dose 1 mg .ROUTE .STK-MED ONE Stop: 03/27/19 07:14 Propofol (Diprivan 20 Ml) Confirm Administered Dose 200 mg .ROUTE .STK-MED ONE Stop: 03/27/19 07:14 Rocuronium Homer (Zemuron) Confirm Administered Dose 100 mg .ROUTE .STK-MED ONE Stop: 03/27/19 10:56 Scopolamine (Transderm-Scop) Confirm Administered Dose 1.5 mg .ROUTE .ST-MED ONE Stop: 03/27/19 11:05 Succinylcholine Chloride (Succinylcholine Chloride) Confirm Administered Dose 200 mg .ROUTE .ST-MED ONE Stop: 03/27/19 10:56 Tranexamic Acid (Cyklokapron) 2,000 mg IV ONETIME ONE Stop: 03/27/19 09:31 Last Admin: 03/27/19 14:33 Dose: Not Given Tranexamic Acid (Cyklokapron) Confirm Administered Dose 2,000 mg .ROUTE .ST- MED ONE Stop: 03/27/19 10:44
[2019-03-28 13:15] VITALS: BP 113/74; PULSE 104
== END 2019-03-28 14:50 | disposition home or self-care (01) | DRG 470 ==
LOC: UNDOADMIN 08:12 → MW.MS 08:12 → MW.ICU 08:12
PROVIDERS: ADMIT Orthopaedic Surgery; ATTEND Orthopaedic Surgery
PROC: 0SRB03A Replacement of Left Hip Joint with Ceramic Synthetic Substitute, Uncemented, Open Approach (ICD-10-PCS; principal; 2019-03-27)
DX: M16.12 Unilateral primary osteoarthritis, left hip (principal); Z68.41 Body mass index [BMI] 40.0-44.9, adult; F32.9 Major depressive disorder, single episode, unspecified; L40.50 Arthropathic psoriasis, unspecified; G43.909 Migraine, unspecified, not intractable, without status migrainosus; G25.81 Restless legs syndrome; F41.9 Anxiety disorder, unspecified; G47.33 Obstructive sleep apnea (adult) (pediatric); E78.5 Hyperlipidemia, unspecified; E11.9 Type 2 diabetes mellitus without complications; H40.9 Unspecified glaucoma; K21.9 Gastro-esophageal reflux disease without esophagitis; G89.29 Other chronic pain; M54.9 Dorsalgia, unspecified; M54.2 Cervicalgia; M48.02 Spinal stenosis, cervical region; D72.829 Elevated white blood cell count, unspecified; F43.10 Post-traumatic stress disorder, unspecified; E66.9 Obesity, unspecified; Z90.710 Acquired absence of both cervix and uterus; Z98.890 Other specified postprocedural states; Z87.891 Personal history of nicotine dependence; Z79.899 Other long term (current) drug therapy; Z88.5 Allergy status to narcotic agent; Z88.8 Allergy status to other drugs, medicaments and biological substances; Z87.442 Personal history of urinary calculi
CPT/HCPCS: 01214; 36415; 51701; 76000; 80048; 82962; 83735; 85014; 85018; 85025; 86850; 86900; 86901; 97116-GP; 97161-GP; A9270-GY; C1776; J0131; J0330; J0690; J1170; J1885; J2001; J2060; J2250; J2370; J2405; J2704; J3010; J3490; J7120

== ENCOUNTER 2020-07-14 08:39 | Emergency (ER) | payer MEDICARE, OTHER ==
[2020-07-14] MEDS ORDERED: Sodium Chloride 0.9% 1,000 ML IV ONE (09:04)
--- NOTE | 2020-07-14 09:09 | EDM.PDOC ---
ED HPI GENERAL MEDICAL PROBLEM - General Chief Complaint: Abdominal Pain Stated Complaint: CHEST PAIN Time Seen by Provider: 07/14/20 08:41 Source of Information: Reports: Patient History Limitations: Reports: No Limitations - History of Present Illness INITIAL COMMENTS - FREE TEXT/NARRATIVE: Patient is a 55-year-old female who presents today for epigastric pain. Patient had this pain for the past few weeks. Patient has history of hiatal hernia states that whenever she eats or drinks something she feels a movement to her chest at times feels like it gets stuck. Patient stated pain became worse has been worse with movement as well and taking deep breaths. Patient denies any chest pain or pain on exertion. Patient denies any nausea vomiting diarrhea she still tolerating p.o. but just has pain whenever she eats. Patient denies any fever chills or leg swelling. Abdominal/Chest Pain Score (Numeric/FACES): 8 - Related Data Allergies Allergy/AdvReac Type Severity Reaction Status Date / Time gabapentin Allergy Other Verified 07/14/20 08:58 morphine Allergy Headache Verified 07/14/20 08:58 Home Meds: Home Meds DULoxetine HCl [Cymbalta] 60 mg PO DAILY 07/14/20 [History] Nortriptyline HCl [Pamelor] 50 mg PO DAILY 07/14/20 [History] Vortioxetine Hydrobromide [Trintellix] 10 mg PO DAILY 07/14/20 [History] hydrOXYzine pamoate [Hydroxyzine Pamoate] 35 mg PO DAILY 07/14/20 [History] Past Medical History HEENT History: Reports: Glaucoma Cardiovascular History: Reports: None, Other (See Below) Respiratory History: Reports: Sleep Apnea Other Respiratory History: uses CPAP nightly Gastrointestinal History: Reports: GERD Other Gastrointestinal History: no medication for GERD 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 History: Reports: Renal Calculus 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: Reports: Musculoskeletal History: Reports: Arthritis, Back Pain, Chronic, Fibromyalgia, Neck Pain, Chronic Other Musculoskeletal History: cervical spinal stenosis, lumbar degenerative disc disease Neurological History: Reports: None, Migraines, Vertigo Other Neuro History: Migraines from Cervical Stenosis, has lumbar degenerative disc disease, hx of restless leg syndrome, some Doctors thought she had MS but it has not been confirmed, hx of motion sickness and vertigo Psychiatric History: Reports: Anxiety, Depression, PTSD Endocrine/Metabolic History: Reports: None, Obesity/BMI 30+ Other Endocrine/Metabolic History: took Metformin in the past for Type 2 diabetes- has been off of Metformin for over 1 year with low A1C Hematologic History: Reports: None Immunologic History: Reports: None Oncologic (Cancer) History: Reports: None - Infectious Disease History Infectious Disease History: Reports: Novel Coronavirus - Past Surgical History Head Surgeries/Procedures: Reports: None Female Surgical History: Reports: Section, Hysterectomy, Lithotripsy/ESWL, Other (See Below) Other Female Surgeries/Procedures: pelvic Laparoscopy Musculoskeletal Surgical History: Reports: Ganglion Cyst, Shoulder Surgery Other Musculoskeletal Surgeries/Procedures:: left wrist, left shoulder clean out (crystals) Dermatological Surgical History: Reports: Other (See Below) Social & Family History - Tobacco Use Tobacco Use Status *Q: Never Tobacco User - Recreational Drug Use Recreational Drug Type: Reports: Marijuana/Hashish Recreational Drug Use Frequency: Weekly ED ROS GENERAL - Review of Systems Review Of Systems: See Below Constitutional: Reports: No Symptoms HEENT: Reports: No Symptoms Respiratory: Reports: No Symptoms Cardiovascular: Reports: No Symptoms Endocrine: Reports: No Symptoms GI/Abdominal: Reports: Abdominal Pain : Reports: No Symptoms Musculoskeletal: Reports: No Symptoms Skin: Reports: No Symptoms Neurological: Reports: No Symptoms Psychiatric: Reports: No Symptoms Hematologic/Lymphatic: Reports: No Symptoms Immunologic: Reports: No Symptoms ED EXAM, GI/ABD - Physical Exam Exam: See Below Exam Limited By: No Limitations General Appearance: Alert, WD/WN, No Apparent Distress Respiratory/Chest: No Respiratory Distress, Lungs Clear, Normal Breath Sounds Cardiovascular: Normal Peripheral Pulses, Regular Rate, Rhythm GI/Abdominal Exam: Normal Bowel Sounds, Soft, Tender (epigastric). No: Non- Tender Neurological: Alert, Oriented #1 Interpretation EKG Date: 07/14/20 Time: 08:43 Rhythm: Other (sinus tach) Rate (Beats/Min): 111 ST-T: Normal Course - Vital Signs Last Recorded V/S: Last Vital Signs Temp 97.4 F 07/14/20 13:21 Pulse 91 07/14/20 13:21 Resp 20 07/14/20 13:21 BP 122/67 07/14/20 13:21 Pulse Ox 96 07/14/20 13:21 - Orders/Labs/Meds Orders: Active Orders 24 hr Category Date Time Status EKG 12 Lead [EKG Documentation Completion] [RC] STAT Care 07/14/20 09:03 Active Labs: Laboratory Tests 07/14/20 07/14/20 07/14/20 Range/Units 08:56 08:56 08:56 WBC 14.30 H (4.0-11.0) K/uL RBC 5.64 (4.30-5.90) M/uL Hgb 16.8 H (12.0-16.0) g/dL Hct 51.3 H (36.0-46.0) % MCV 91.0 (80.0-98.0) fL MCH 29.8 (27.0-32.0) pg MCHC 32.7 (31.0-37.0) g/dL RDW Std Deviation 46.8 (28.0-62.0) fl RDW Coeff of Leta 14 (11.0-15.0) % Plt Count 316 (150-400) K/uL MPV 10.00 (7.40-12.00) fL Add Manual Diff YES Neutrophils % (Manual) 58 (48.0-80.0) % Lymphocytes % (Manual) 36 (16.0-40.0) % Monocytes % (Manual) 2 (0.0-15.0) % Eosinophils % (Manual) 4 (0.0-7.0) % Nucleated RBC % 0.0 /100WBC Absolute Seg Neuts 8.3 H (1.4-5.7) Lymphocytes # (Manual) 5.1 H (0.6-2.4) Monocytes # (Manual) 0.3 (0.0-0.8) Eosinophils # (Manual) 0.6 (0.0-0.7) Nucleated RBCs # 0 K/uL Sodium 137 (136-145) mmol/L Potassium 3.9 (3.5-5.1) mmol/L Chloride 100 (98-107) mmol/L Carbon Dioxide 28.6 (21.0-32.0) mmol/L BUN 11 (7.0-18.0) mg/dL Creatinine 0.9 (0.6-1.0) mg/dL Est Cr Clr Drug Dosing 67.87 mL/min Estimated GFR (MDRD) > 60.0 ml/min Glucose 159 H (74-106) mg/dL Calcium 8.3 L (8.5-10.1) mg/dL Total Bilirubin 0.2 (0.2-1.0) mg/dL AST 9 L (15-37) IU/L ALT 25 (14-63) IU/L Alkaline Phosphatase 115 (46-116) U/L Troponin I < 0.050 (0.000-0.056) ng/mL Total Protein 7.5 (6.4-8.2) g/dL Albumin 3.5 (3.4-5.0) g/dL Globulin 4.0 (2.6-4.0) g/dL Albumin/Globulin Ratio 0.9 (0.9-1.6) Lipase 157 (73-393) U/L 07/14/20 Range/Units 12:13 WBC (4.0-11.0) K/uL RBC (4.30-5.90) M/uL Hgb (12.0-16.0) g/dL Hct (36.0-46.0) % MCV (80.0-98.0) fL MCH (27.0-32.0) pg MCHC (31.0-37.0) g/dL RDW Std Deviation (28.0-62.0) fl RDW Coeff of Leta (11.0-15.0) % Plt Count (150-400) K/uL MPV (7.40-12.00) fL Add Manual Diff Neutrophils % (Manual) (48.0-80.0) % Lymphocytes % (Manual) (16.0-40.0) % Monocytes % (Manual) (0.0-15.0) % Eosinophils % (Manual) (0.0-7.0) % Nucleated RBC % /100WBC Absolute Seg Neuts (1.4-5.7) Lymphocytes # (Manual) (0.6-2.4) Monocytes # (Manual) (0.0-0.8) Eosinophils # (Manual) (0.0-0.7) Nucleated RBCs # K/uL Sodium (136-145) mmol/L Potassium (3.5-5.1) mmol/L Chloride (98-107) mmol/L Carbon Dioxide (21.0-32.0) mmol/L BUN (7.0-18.0) mg/dL Creatinine (0.6-1.0) mg/dL Est Cr Clr Drug Dosing mL/min Estimated GFR (MDRD) ml/min Glucose (74-106) mg/dL Calcium (8.5-10.1) mg/dL Total Bilirubin (0.2-1.0) mg/dL AST (15-37) IU/L ALT (14-63) IU/L Alkaline Phosphatase (46-116) U/L Troponin I < 0.050 (0.000-0.056) ng/mL Total Protein (6.4-8.2) g/dL Albumin (3.4-5.0) g/dL Globulin (2.6-4.0) g/dL Albumin/Globulin Ratio (0.9-1.6) Lipase (73-393) U/L Meds: Medications Discontinued Medications Generic Name Dose Route Start Last Admin Trade Name Freq PRN Reason Stop Dose Admin Hydromorphone HCl 1 mg 07/14/20 13:00 07/14/20 13:15 Hydromorphone 1 Mg/Ml Syringe IVPUSH 07/14/20 13:01 1 mg ONETIME ONE Administration Sodium Chloride 1,000 mls @ 999 mls/hr 07/14/20 09:04 07/14/20 09:14 Normal Saline IV 07/14/20 10:04 999 mls/hr .BOLUS ONE Administration Iopamidol 100 ml 07/14/20 10:01 07/14/20 10:02 Iopamidol 755 Mg/Ml 500 Ml Multipack Bottle IVPUSH 07/14/20 10:02 100 ml ONETIME STA Administration Ketorolac Tromethamine 30 mg 07/14/20 11:01 07/14/20 11:25 Ketorolac 30 Mg/Ml Sdv IVPUSH 07/14/20 11:02 30 mg ONETIME ONE Administration Morphine Sulfate 4 mg 07/14/20 12:36 07/14/20 12:48 Morphine 4 Mg/Ml Syringe IVPUSH 07/14/20 12:37 Not Given ONETIME ONE - Re-Assessments/Exams Free Text/Narrative Re-Assessment/Exam: 07/14/20 14:06 Patient pain has been controlled. Patient CT x-ray EKG all reviewed. Patient will be referred back to pain management physician. Patient does not seem to be cardiac related. Patient pain is reproducible with movement on exam. Departure - Departure Time of Disposition: 14:06 Disposition: Home, Self-Care 01 Condition: Good Clinical Impression: Total body pain - Discharge Information *PRESCRIPTION DRUG MONITORING PROGRAM REVIEWED*: Not Applicable *COPY OF PRESCRIPTION DRUG MONITORING REPORT IN PATIENT EVIE: Not Applicable Instructions: Pain Without a Known Cause Forms: ED Department Discharge Additional Instructions: The following information is given to patients seen in the emergency department who are being discharged to home. This information is to outline your options for follow-up care. We provide all patients seen in our emergency department with a follow-up referral. The need for follow-up, as well as the timing and circumstances, are variable depending upon the specifics of your emergency department visit. If you don't have a primary care physician on staff, we will provide you with a referral. We always advise you to contact your personal physician following an emergency department visit to inform them of the circumstance of the visit and for follow-up with them and/or the need for any referrals to a consulting specialist. The emergency department will also refer you to a specialist when appropriate. This referral assures that you have the opportunity for follow-up care with a specialist. All of these measure are taken in an effort to provide you with optimal care, which includes your follow-up. Under all circumstances we always encourage you to contact your private physician who remains a resource for coordinating your care. When calling for follow-up care, please make the office aware that this follow-up is from your recent emergency room visit. If for any reason you are refused follow-up, please contact the [facility] Emergency Department at and asked to speak to the emergency department charge nurse. Please follow up with your primary care physician. If you do not have a primary care physician, see below: [facility] [address] [place] [id number] [facility] [address] [place] [id number] Your seen today for pain in the abdominal and chest area. We did CT scans EKG x-rays that show within normal limits. We controlled her pain in the ER. We recommend you follow-up with your pain medicine physician. Having a concerning signs or symptoms please return to the ED. Sepsis Event Note (ED) - Evaluation Sepsis Screening Result: No Definite Risk - Focused Exam Vital Signs: Vital Signs Temp Pulse Resp BP Pulse Ox 07/14/20 13:21 97.4 F 91 20 122/67 96 07/14/20 12:00 94 16 131/81 97 07/14/20 11:00 99 131/92 H 94 L 07/14/20 09:47 101 H 16 133/77 95 07/14/20 08:46 98.6 F 112 H 15 144/84 H 98 - Assessment/Plan Plan: Patient is a 55-year-old female presents today for epigastric pain possibly due to arthritis hernia. We also did a EKG get troponins as well but also performed a CAT scan this is most likely GI static cardiac.
[2020-07-14 09:37] LABS: BLOOD UREA NITROGEN,BUN 11 mg/dL (7.0-18.0); CARBON DIOXIDE,CO2 28.6 mmol/L (21.0-32.0); CHLORIDE,CL 100 mmol/L (98-107); GLUCOSE RANDOM 159 mg/dL (74-106); LIPASE 157 U/L (73-393); POTASSIUM,K 3.9 mmol/L (3.5-5.1); SODIUM,NA 137 mmol/L (136-145)
[2020-07-14] MEDS ORDERED: Iopamidol 755 MG/ML 500 ML Multipack Bottle IVPUSH STA (10:01)
--- NOTE | 2020-07-14 10:39 | CT ---
INDICATION: Epigastric pain. TECHNIQUE: Volumetric helical scanning of the abdomen was performed with oral contrast material and 100 cc of Isovue 370 contrast material IV. Coronal and sagittal reconstructions were obtained. COMPARISON: None. FINDINGS: Fatty change is demonstrated in the liver. The liver is normal in size and shape. The bile ducts, spleen, kidneys and pancreas are unremarkable. A nonspecific 1.5 cm left adrenal nodule is demonstrated. The right adrenal is normal. The visualized bowel is unremarkable. No lymphadenopathy or free fluid is apparent. The lung bases are clear, and the heart size is normal. IMPRESSION: 1. Etiology of epigastric pain not evident. 2. Fatty liver. 3. Nonspecific 1.5 cm left adrenal nodule. Comparison with any prior exam suggested. Otherwise, repeat CT utilizing an adrenal adenoma protocol is recommended. Please note that all CT scans at this facility use dose modulation, iterative reconstruction, and/or weight-based dosing when appropriate to reduce radiation dose to as low as reasonably achievable. Dictated by Geoffrey Wiley MD @ 07/14/2020 10:37:[address] Geoffrey Wiley @ Jul 14 2020 10:37AM
[2020-07-14] MEDS ORDERED: Ketorolac 30 MG/ML SDV IVPUSH ONE (11:01)
[2020-07-14] MEDS ORDERED: Morphine 4 MG/ML Syringe IVPUSH ONE (12:36)
[2020-07-14] MEDS ORDERED: HYDROmorphone 1 MG/ML Syringe IVPUSH ONE (13:00)
--- NOTE | 2020-07-14 13:33 | CR ---
INDICATION: Chest pain. TECHNIQUE: Chest 1 view. COMPARISON: Chest radiograph 01/14/2015. FINDINGS: No focal consolidation, pleural effusion, or pneumothorax. Normal heart size and pulmonary vascularity. The bones are unremarkable. IMPRESSION: No acute cardiopulmonary findings. Dictated by Jailene Claire MD @ 07/14/2020 1:33:[address] Jailene Claire @ Jul 14 2020 1:33PM
[2020-07-14 15:34] VITALS: BP 120/67; PULSE 88
== END 2020-07-14 14:20 | disposition home or self-care (01) ==
LOC: MW.ED 08:39
DX: M79.10 Myalgia, unspecified site (principal); E11.9 Type 2 diabetes mellitus without complications; Z79.84 Long term (current) use of oral hypoglycemic drugs; Z88.6 Allergy status to analgesic agent; Z88.5 Allergy status to narcotic agent
CPT/HCPCS: 36415; 71045; 74160; 80053; 83690; 84484; 85025; 93005; 96374; 96375; 99284; J1170; J1885; J7030; Q9967

== ENCOUNTER 2022-04-05 06:38 | Day surgery (SDC) | payer MEDICARE, OTHER ==
[~2022-04-05 06:38] MED LIST: Lactated Ringers 1,000 ML IV SCH; ceFAZolin 3 GM in Dextrose 5% in Water 100 ML IV ONE
[2022-04-05] MEDS ORDERED: Albuterol 0.083% 2.5 MG/3 ML Neb Soln NEB PRN (06:46)
[2022-04-05] MEDS ORDERED: Naloxone 0.4 MG/ML SDV IVPUSH PRN (06:46)
[2022-04-05] MEDS ORDERED: HYDROmorphone 1 MG/ML Syringe IVPUSH PRN (06:46)
[2022-04-05] MEDS ORDERED: Ondansetron 4 MG/2 ML SDV IVPUSH PRN ×2 (06:46→09:29)
[2022-04-05] MEDS ORDERED: fentaNYL 50 MCG/ML SDV IVPUSH PRN (06:46)
[2022-04-05] MEDS ORDERED: Metoclopramide 10 MG/2 ML SDV IVPUSH PRN (06:46)
[2022-04-05] MEDS ORDERED: Bupivacaine 0.5% 30 ML SDV ONE (07:24)
[2022-04-05] MEDS ORDERED: ceFAZolin 1 GM Vial ONE (07:24)
[2022-04-05] MEDS ORDERED: Dexamethasone 4 MG/ML 5 ML MDV ONE (07:27)
[2022-04-05] MEDS ORDERED: Ketorolac 30 MG/ML SDV ONE (07:27)
[2022-04-05] MEDS ORDERED: Lidocaine 2% 5 ML SDV ONE (07:27)
[2022-04-05] MEDS ORDERED: Rocuronium Bromide 50 MG/5 ML Syringe ONE (07:27)
[2022-04-05] MEDS ORDERED: Dexmedetomidine 200 MCG/2 ML SDV ONE (07:27)
[2022-04-05] MEDS ORDERED: Ondansetron 4 MG/2 ML SDV ONE (07:27)
[2022-04-05] MEDS ORDERED: Magnesium Sulfate (4.06 MEQ/ML) 5 GM/10 ML SDV ONE (07:28)
[2022-04-05] MEDS ORDERED: Propofol 200 MG/20 ML SDV ONE ×2 (07:30→09:01)
[2022-04-05] MEDS ORDERED: fentaNYL 100 MCG/2 ML SDV ONE (07:30)
[2022-04-05] MEDS ORDERED: Ropivacaine 0.5% 5 MG/ML 30 ML SDV ONE (07:38)
[2022-04-05] MEDS ORDERED: ePHEDrine 50 MG/ML SDV ONE (08:40)
[2022-04-05] MEDS ORDERED: Phenylephrine 1% 10 MG/ML SDV ONE ×2 (08:40)
[2022-04-05] MEDS ORDERED: Sugammadex Sodium 200 MG/2 ML VIAL ONE (08:50)
[2022-04-05] MEDS ORDERED: Acetaminophen/HYDROcodone 325-5 MG Tab PO PRN (09:29)
[2022-04-05] MEDS ORDERED: Lactated Ringers 1,000 ML IV SCH (09:30)
[2022-04-05 10:41] VITALS: PULSE 84
[2022-04-05 11:02] VITALS: BP 97/52
[2022-04-05] MEDS ORDERED: ceFAZolin 3 GM in Dextrose 5% in Water 100 ML IV ONE ×2 (15:00)
== END 2022-04-05 11:20 | disposition home or self-care (01) ==
LOC: MW.SDS 06:38
PROVIDERS: ATTEND Surgery
DX: K43.6 Other and unspecified ventral hernia with obstruction, without gangrene (principal); G89.4 Chronic pain syndrome; L40.50 Arthropathic psoriasis, unspecified; K59.00 Constipation, unspecified; F41.9 Anxiety disorder, unspecified; F32.A Depression, unspecified; K21.9 Gastro-esophageal reflux disease without esophagitis; M79.7 Fibromyalgia; E11.9 Type 2 diabetes mellitus without complications; M16.12 Unilateral primary osteoarthritis, left hip; M81.0 Age-related osteoporosis without current pathological fracture; Z88.8 Allergy status to other drugs, medicaments and biological substances; F17.210 Nicotine dependence, cigarettes, uncomplicated
CPT/HCPCS: 49592; J0131; J1100; J2370; J2704; J2795; J3010; J3475; J3490; J7120; 00790; 64488; J0690; J1885; J2405

== ENCOUNTER 2024-09-29 14:29 | Emergency (ER) | payer MEDICARE, OTHER ==
[2024-09-29 14:55] VITALS: BP 159/90; PULSE 100
[2024-09-29] MEDS: Orphenadrine 60 MG/2 ML Inj IM ONE (16:38)
== END 2024-09-29 17:13 | disposition home or self-care (01) ==
LOC: MW.ED 14:29
DX: M54.12 Radiculopathy, cervical region (principal); G89.29 Other chronic pain; K21.9 Gastro-esophageal reflux disease without esophagitis; E11.9 Type 2 diabetes mellitus without complications; E66.9 Obesity, unspecified; Z86.16 Personal history of COVID-19; Z79.899 Other long term (current) drug therapy; Z90.710 Acquired absence of both cervix and uterus; Z88.8 Allergy status to other drugs, medicaments and biological substances; Z88.5 Allergy status to narcotic agent; Z68.33 Body mass index [BMI] 33.0-33.9, adult; Z99.89 Dependence on other enabling machines and devices
CPT/HCPCS: 72125; 96372; 99284; J2360; 99282

== ENCOUNTER 2024-11-02 01:05 | Emergency (ER) | payer MEDICARE, OTHER ==
[2024-11-02 01:31] LABS: BASOPHILS ABSOLUTE AUTO 0.05 K/uL (0.00-0.20); BASOPHILS PERCENT AUTO 0.6 % (0.0-1.0); EOSINOPHILS ABSOLUTE AUTO 0.04 K/uL (0.00-0.45); EOSINOPHILS PERCENT AUTO 0.5 % (0.0-6.0); IMMATURE GRAN ABSOLUTE AUTO 0.03 K/uL (0.00-0.05); IMMATURE GRAN PERCENT AUTO 0.4 % (0.0-0.4); LYMPHOCYTES ABSOLUTE AUTO 3.19 K/uL (1.00-4.80); LYMPHOCYTES PERCENT AUTO 37.3 % (24.0-44.0); MEAN PLATELET VOLUME 9.5 fL (9.4-12.3); MONOCYTES ABSOLUTE AUTO 0.51 K/uL (0.00-0.80); MONOCYTES PERCENT AUTO 6.0 % (0.0-8.0); NEUTROPHILS ABSOLUTE AUTO 4.73 K/uL (1.80-7.70); NEUTROPHILS PERCENT AUTO 55.2 % (41.0-71.0); NRBC ABSOLUTE 0.00 K/uL (0.00-0.02); NRBC PERCENT 0.0 /100WBC (0.0-0.2); PLATELET COUNT,PLT 273 K/uL (150-400); RED BLOOD CELL COUNT 5.41 M/uL (4.10-5.30); WHITE BLOOD CELL COUNT,WBC 8.55 K/uL (3.9-11.3)
[2024-11-02 01:59] LABS: A/G RATIO 1.0 (0.9-1.6); ALANINE AMINOTRANSFERASE,ALT 83.0 IU/L (14-63); BILIRUBIN TOTAL 0.5 mg/dL (0.2-1.0); BLOOD UREA NITROGEN,BUN 15.0 mg/dL (7.0-18.0); CARBON DIOXIDE,CO2 26.8 mmol/L (21.0-32.0); CHLORIDE,CL 94.0 mmol/L (98-107); CREATININE 1.0 mg/dL (0.6-1.0); EST CRCL DRUG DOSING (CG) 56.0 mL/min; POTASSIUM,K 4.3 mmol/L (3.5-5.1); PROTEIN TOTAL,TP 7.5 g/dL (6.4-8.2); SODIUM,NA 132.0 mmol/L (136-145)
[2024-11-02 02:05] LABS: ESTIMATED GFR 64.0 mL/min (>60); GLUCOSE RANDOM 539.0 mg/dL (74-106)
[2024-11-02] MEDS: Heparin Sodium 5,000 Units/ML Vial IVPUSH ONE (02:29)
[2024-11-02] MEDS: Heparin Sodium/0.45% NaCl 25,000 UNITS/250 ML BAG IV SCH (02:29)
[2024-11-02 02:35] LABS: ASPARTATE AMNIOTRANSFERASE,AST 52.0 IU/L (15-37)
[2024-11-02] MEDS: fentaNYL 50 MCG/ML SDV IVPUSH ONE (02:36)
[2024-11-02] MEDS: Iopamidol 755 MG/ML 500 ML Multipack Bottle IVPUSH STA (03:50)
[2024-11-02] MEDS ORDERED: 50% Dextrose in Water 50 ML Syringe IVPUSH PRN (03:55)
[2024-11-02 04:12] VITALS: BP 114/68; PULSE 102
[2024-11-02] MEDS: Insulin Regular, Human 100 Units/ML 10 ML Vial IVPUSH ONE (04:25)
== END 2024-11-02 06:01 ==
LOC: MW.ED 01:05
DX: I21.4 Non-ST elevation (NSTEMI) myocardial infarction (principal); E11.65 Type 2 diabetes mellitus with hyperglycemia; K21.9 Gastro-esophageal reflux disease without esophagitis; F17.210 Nicotine dependence, cigarettes, uncomplicated; Z88.8 Allergy status to other drugs, medicaments and biological substances; Z88.5 Allergy status to narcotic agent; Z79.899 Other long term (current) drug therapy
CPT/HCPCS: 36415; 70450; 71045; 71275; 74174; 80053; 82947; 83690; 83735; 83880; 84484; 85025; 85730; 93005; 96365; 96366; 96375; 99285; A9270; J1644; J3010; J7030; Q9967; 93010; J1171; J1815-GY